=== PATIENT | male | born 1965 | race Caucasian/White ===

== ENCOUNTER 2017-09-29 21:22 | Emergency (ER) | payer OTHER ==
[~2017-09-29] VITALS: Ht 190.5 cm; Wt 111.6 kg
[~2017-09-29 21:22] MED LIST: ASPI81TA28 PO
[2017-09-29 21:24] VITALS: TEMP 36.6; Ht 190.5 cm; Wt 111.6 kg
[2017-09-29 22:05] VITALS: BP 125/82; PULSE 63; O2SAT 100
--- NOTE | 2017-09-29 23:55 | EMERGENCY ROOM VISIT NOTE ---
History First contact with patient: 21:34 Chief Complaint: HYPERGLYCEMIA Stated Complaint: BLOOD SUGAR IS HIGH Nursing Triage Summary: Pt reports that his PCP told him today that his blood sugar was borderline high. Pt reports his BSG was 123. Pt was concerned and wanted his BSG rechecked. Here BSG was 92. Denies hx diabetic. History of Present Illness The patient is a 52 year old male who presents to the Emergency Room with complaints of elevated blood sugar. The patient states that he went to his primary care physician this afternoon for some visual changes. They do blood work and referred him to ophthalmology whom he has not yet seen. The patient checked his labs at home, and the EMR from [facility] showed that his sugar was "high". The patient states the level was 123. He does not have a history of diabetes. He is usually active and works out regularly. The patient has not had polyuria or polydipsia. No chest pain, chest tightness, or shortness of breath. No numbness or paresthesias. He rates current discomfort as 0/10 and would like his sugar rechecked. Review of Systems More than 10 systems were reviewed and otherwise negative with the exception of history of present illness. Past Medical/Surgical History Medical Problems: (1) GERD (gastroesophageal reflux disease) Family History No pertinent family history Social History Smoking Status: Never Smoker Alcohol Use: none Housing Status: lives alone Occupation Status: employed Current/Historical Medications Scheduled Aspirin (Aspirin Ec), 81 MG PO DAILY Physical Exam Vital Signs Date Time Temp Pulse Resp B/P (MAP) Pulse Ox O2 Delivery O2 Flow Rate FiO2 09/29/17 22:05 63 18 125/82 100 09/29/17 21:24 36.6 55 18 123/81 99 Room Air Physical Exam VITALS: Vitals are noted on the nurse's note and reviewed by myself. Vital signs stable. GENERAL: Well-developed, well-nourished, male, who is in no acute distress and resting comfortably. Patient is cooperative with the examination. HEAD: Normocephalic atraumatic. EARS: External ear normal. External auditory canals clear, tympanic membranes pearly cedeno without erythema or effusion bilaterally. EYES: Pupils equal round and reactive to light and accommodation. Conjunctivae without injection, sclerae without icterus. Extraocular movements intact. NOSE: Patent, turbinates without inflammation or discharge. MOUTH: Mucous membranes moist. Tonsils are not enlarged. Pharynx without erythema, blood, or exudate. Uvula midline. Airway patent. NECK: Supple without nuchal rigidity. No lymphadenopathy. No thyromegaly. Cervical spine is nontender. HEART: Regular rate and rhythm without murmurs gallops or rubs. LUNGS: Clear to auscultation bilaterally without wheezes, rales or rhonchi. No retractions or accessory muscle use. Medical Decision & Procedures Laboratory Results Test 09/29/17 21:32 Bedside Glucose 92 mg/dl (70-99) ED Course Physical exam and history were performed. Nursing notes, EMR, and Medication List were personally reviewed. Patient appears to have had an elevated outpatient sugar of 123. On examination the patient appears well and certainly is not toxic. I was able to review his [facility] [facility] EMR, and his labs were otherwise fairly noncontributory. His creatinine was 1.1, sodium 141, potassium four-point for further labs. Again his glucose was 123. He did not have an elevated white count, which was 5.87. I discussed options of care with the patient and truly his primary concern is for his sugar and he would like a recheck. Fingerstick glucose was 92 here in the department. I discussed options of care with the patient, who feels comfortable with discharge home. He does not appear to be diabetic and it seems appropriate to follow with his primary care physician. It is worth noting that his glucose this afternoon was not a fasting trial. The patient was otherwise invited back to the ER with any new, worsening, or concerning symptoms. The chart was completed utilizing [employer] Speech Voice Recognition Software. Grammatical errors, random word insertions, pronoun errors, and incomplete sentences are an occasional consequence of this system due to software limitations, ambient noise, and hardware issues. Any formal questions or concerns about the content, text, or information contained within the body of this dictation should be directly addressed to the provider for clarification. . Medical Decision Differential diagnosis includes, but is not limited to: Elevated blood sugar reading, hyperglycemia, diabetes, DKA, and others Impression Primary Impression: Elevated blood sugar level Departure Information Dispostion Home / Self-Care Condition GOOD Forms HOME CARE DOCUMENTATION FORM, IMPORTANT VISIT INFORMATION Patient Instructions My [facility] Additional Instructions You were seen and evaluated today on an emergency basis only. This is not a substitute for, or an effort to provide, complete comprehensive medical care. It is not possible to recognize and treat all injuries or illnesses in a single emergency department visit. For this reason it is recommended that you followup with your primary care physician with any ongoing or persisting symptoms. Your sugar today was 92. This can be rechecked by your primary care physician. You are welcome to return to the emergency department anytime with new, worsening, or concerning symptoms.
== END 2017-09-29 22:06 | disposition home or self-care (01) ==
LOC: C.EDB 21:23
DX: R73.9 Hyperglycemia, unspecified (principal)